=== PATIENT | female | born 1995 | race African-American/Black ===

== ENCOUNTER 2019-05-01 19:57 | Emergency (ER) | payer SELFPAY ==
[~2019-05-01] VITALS: Ht 172.7 cm; Wt 77.1 kg
[2019-05-01 20:03] VITALS: Ht 172.7 cm; Wt 77.1 kg
[2019-05-01 23:44] VITALS: BP 111/60
== END 2019-05-01 23:44 ==
LOC: ED 19:57
DX: R07.89 Other chest pain (principal); S90.861A Insect bite (nonvenomous), right foot, initial encounter; F41.9 Anxiety disorder, unspecified; F32.9 Major depressive disorder, single episode, unspecified; F17.210 Nicotine dependence, cigarettes, uncomplicated; Z88.1 Allergy status to other antibiotic agents; W57.XXXA Bitten or stung by nonvenomous insect and other nonvenomous arthropods, initial encounter; Y93.89 Activity, other specified; Y92.89 Other specified places as the place of occurrence of the external cause; Y99.8 Other external cause status